=== PATIENT | female | born 1975 | race Caucasian/White ===

== ENCOUNTER 2016-08-11 13:27 | Inpatient (IN) | payer OTHER ==
[~2016-08-11] VITALS: Ht 157.5 cm; Wt 59.1 kg
[~2016-08-11 13:27] MED LIST: MOTRIN 800800 MG/TAB PO; PRENATAL1 TA1 PO
[2016-09-07] VITALS (30 sets, daily range): BP systolic 103–153; BP diastolic 62–96; PULSE 64–89; TEMP 98–98.6
[2016-09-07 14:04] LABS: BASO % 0.3 % (0.0-2.0); EOS % 0.6 % (0-4.0); GRAN # 4.9 (1.4-6.5); GRAN % 71.4 % (42.2-75.2); LYMPH # 1.5 (1.2-3.4); LYMPH % 21.7 % (20.0-51.0); MEAN CELL VOLUME 85 fl (80.0-100.0); MEAN CORPUSCULAR HGB CONC 32 g/dl (33.0-37.0); MEAN PLATELET VOLUME 13.1 fl (7.4-10.4); MONO # 0.4 (0.1-0.6); MONO % 5.6 % (1.7-9.3); PLATELET COUNT 154 K/mm3 (130-400); RED BLOOD COUNT 3.63 M/mm3 (4.10-5.30); REDCELL DISTRIBUTION WIDTH-CV 14.2 % (11.5-14.5); WHITE BLOOD COUNT 6.8 K/mm3 (4.8-10.8)
[2016-09-07 14:06] LABS: HEMATOCRIT 30.8 % (37.0-47.0); HEMOGLOBIN 9.9 g/dl (12.5-16.0); MEAN CORPUSCULAR HEMOGLOBIN 27 pg (27.0-31.0)
[2016-09-07] MEDS ORDERED: IRON325 MG PO (14:51)
[2016-09-07] MEDS ORDERED: PERCOCET 325 MG1 TA2 PO (20:38)
[2016-09-07] MEDS ORDERED: IBU800 M1 PO (20:38)
[2016-09-08 01:00] VITALS: BP 107/63; PULSE 79; TEMP 98.6
[2016-09-08 04:15] VITALS: BP 141/82; PULSE 69; TEMP 97.7
[2016-09-08 08:47] VITALS: BP 128/80; PULSE 71; TEMP 97.4
[2016-09-08 16:30] VITALS: BP 136/81; PULSE 75; TEMP 97.9
[2016-09-08 20:30] VITALS: BP 107/56; PULSE 74; TEMP 97.7
[2016-09-09 09:00] VITALS: BP 137/82; PULSE 92; TEMP 97.8
== END 2016-09-09 17:30 | disposition home or self-care (01) | DRG 775 ==
LOC: EDSTATUS 08-30 13:20 → LDRO 08-30 13:26 → LDR 09-07 13:22 → OB 09-07 13:24
PROVIDERS: Obstetrics & Gynecology
PROC: 10E0XZZ Delivery of Products of Conception, External Approach (ICD-10-PCS; principal; 2016-09-07)
DX: O48.0 Post-term pregnancy (principal); O99.824 Streptococcus B carrier state complicating childbirth; O09.523 Supervision of elderly multigravida, third trimester; O09.43 Supervision of pregnancy with grand multiparity, third trimester; Z3A.41 41 weeks gestation of pregnancy; Z37.0 Single live birth
CPT/HCPCS: J2540; J2590; J7120